=== PATIENT | male | born 1965 | race Caucasian/White ===

== ENCOUNTER 2017-03-11 01:39 | Emergency (ER) | payer OTHER ==
[2017-03-11] MEDS ORDERED: SULFAMETHOX/TMP 800/160 MG 1 TAB PO ONE (03:13)
[2017-03-11] MEDS ORDERED: CEPHALEXIN 500 MG CAP PO ONE (03:13)
[2017-03-11] MEDS ORDERED: CEPHALEXIN 500MG PREPACK#4 BTL TAKEHOME ONE (03:13)
[2017-03-11] MEDS ORDERED: SULFAMET/TMP DS PREPACK#2 BTL TAKEHOME ONE (03:13)
--- NOTE | 2017-03-11 03:16 | EDPHY ---
H & P Stated Complaint: c/o swelling/pain/redness in R foot x 2 days, tonight pain moving up leg Time Seen by Provider: 03/11/17 02:54 HPI/ROS: HPI The patient presents with painful red foot for the last several days. He initially noticed that his foot felt sore about 3 days ago. Then yesterday he noticed it was slightly red. Tonight and 9:00 p.m. he noticed there was swelling in his foot and had more redness. He does report 1 episode of chills and night 2 nights ago. Others, he has not had a fever, nausea or vomiting. He was seen by his primary care doctor 2 days ago and diagnosed with viral illness. He has no prior history of cellulitis. He has had gout before, though this feels different. REVIEW OF SYSTEMS Constitutional: No fever, no chills. Eyes: No discharge. ENT: No sore throat. Cardiovascular: No chest pain, no palpitations. Respiratory: No cough, no shortness of breath. Gastrointestinal: No abdominal pain, no vomiting. Genitourinary: No hematuria. Musculoskeletal: No back pain. Skin: Rash present Neurological: No headache. PMHx: Inclusion body myositis Soc Hx: Housed PHYSICAL General Appearance: Alert, no distress Eyes: Pupils equal and round no pallor or injection ENT, Mouth: Mucous membranes moist Respiratory: There are no retractions, lungs are clear to auscultation Cardiovascular: Regular rate and rhythm Gastrointestinal: Abdomen is soft and non-tender, no masses, bowel sounds normal Neurological: A&O, moves all extremities Skin: Warm and dry, right lateral dorsum of foot is diffusely erythematous, warm, tender to palpation without any areas of fluctuance, there is no streaking or lymphadenopathy approximately Musculoskeletal: Neck is supple non tender Extremities: symmetrical, full range of motion Psychiatric: Patient is oriented X 3, there is no agitation Source: Patient Exam Limitations: No limitations - Medical/Surgical History Hx Asthma: Yes Hx Chronic Respiratory Disease: No Hx Diabetes: No Hx Cardiac Disease: No Hx Renal Disease: No Hx Cirrhosis: No Hx Alcoholism: No Hx HIV/AIDS: No Hx Splenectomy or Spleen Trauma: No Other PMH: inclusion body myositis, asthma, bilat orthoscopic knee surg, microdiscectomy x 2 - Social History Smoking Status: Never smoked Constitutional: Initial Vital Signs Temperature (C) 36.8 C 01/10/18 01:42 Heart Rate 86 03/11/17 01:42 Respiratory Rate 16 03/11/17 01:42 Blood Pressure 165/92 H 03/11/17 01:42 O2 Sat (%) 92 03/11/17 01:42 O2 Delivery Mode Room Air Allergies/Adverse Reactions: CATS Allergy (Uncoded 04/04/11 16:01) SEASONAL Allergy (Uncoded 04/04/11 16:01) Home Medications: Medication Instructions Recorded ALBUTEROL SULFATE 03/11/17 Advair 100/50 (*) 03/11/17 Cephalexin [Keflex (*)] 500 mg PO Q6H #28 cap 03/11/17 Sulfamethox/Tmp 800/160 mg 1 tab PO BID #14 tab 03/11/17 [Bactrim Ds] Medical Decision Making Differential Diagnosis: 51-year-old male, history of inclusion body myositis, presents with several days of soreness of his right foot now associated with erythema and edema as well as warmth. Differential diagnosis includes cellulitis, less likely gout, less likely DVT. In the emergency department, patient was given Keflex and Bactrim for presumed cellulitis. Erythematous area was a cold with a marking pen. He was given instructions for return precautions. He is not systemically ill, thus I feel is suitable for outpatient management. He will be discharged home with follow up with primary care doctor. Departure - Departure Disposition: Home, Routine, Self-Care Clinical Impression: Cellulitis Qualifiers: Site of cellulitis: extremity Site of cellulitis of extremity: lower extremity Laterality: right Qualified Code(s): L03.115 - Cellulitis of right lower limb Condition: Good Instructions: Cellulitis (ED) Additional Instructions: Please elevate your leg as much as possible. You can use ice to help with pain. You could also take ibuprofen or Tylenol. If the redness spreads, you need to return to the emergency department. Otherwise, please follow-up with your doctor in 1-2 days. Referrals: Shey Marinelli MD [Primary Care Provider] - As per Instructions Prescriptions: Cephalexin [Keflex (*)] 500 mg PO Q6H #28 cap Sulfamethox/Tmp 800/160 mg [Bactrim Ds] 1 tab PO BID #14 tab
[2017-03-11 03:37] VITALS: BP 128/80; PULSE 75; RESP 18; TEMP 97.7; O2SAT 93
== END 2017-03-11 03:39 | disposition home or self-care (01) ==
DX: L03.115 Cellulitis of right lower limb (principal); J45.909 Unspecified asthma, uncomplicated

== ENCOUNTER → 2017-07-28 | Outpatient (CLI) | payer OTHER | LOC: BMCIMAGING 13:18 | PROVIDERS: ATTEND Physician Assistant | DX: R60.0 Localized edema (principal); G72.41 Inclusion body myositis [IBM] ==